=== PATIENT | male | born 1955 | race Caucasian/White ===

== ENCOUNTER → 2017-03-25 | Outpatient (CLI) | payer BC ==
--- NOTE | 2017-03-25 08:49 | RAD ---
Indication left groin pain. Targeted ultrasound to the left groin was performed. Bowel is seen in the inguinal canal compatible with a recurrent hernia. The left common femoral vein appeared normal.
== END | disposition home or self-care (01) ==
LOC: US 07:57
PROVIDERS: ATTEND Surgery
DX: K40.91 Unilateral inguinal hernia, without obstruction or gangrene, recurrent (principal)
CPT/HCPCS: 76881

== ENCOUNTER 2017-04-04 08:48 | Day surgery (SDC) | payer BC ==
[~2017-04-04] VITALS: Ht 175.3 cm; Wt 98.9 kg
[~2017-04-04 08:48] MED LIST: ASPI-630 PO; BUPIVACAINE-EPI 0.25%-1:200000 MPF 30 ML VIAL. ONE; CHOL100013 PO; GLUC100018 PO; HYDROmorphone 2 MG/ML VIAL IV PRN; IV RINGERS,LACTATED 1000ML 1,000 ML IV SCH; LIDOCAINE 1% PF 2 ML VIAL. ID PRN; LISI1TAB5 PO; ONDANSETRON PF 4 MG/2 ML VIAL. IV PRN; PROCHLORPERAZINE 10 MG/2 ML VIAL. IV PRN; SIMV40TA3 PO; fentaNYL PF VIAL 100 MCG/2 ML VIAL IV PRN
[2017-04-04] MEDS ORDERED: ONDANSETRON PF 4 MG/2 ML VIAL. ONE (10:17)
[2017-04-04] MEDS ORDERED: DEXAMETHASONE SOD PHOS 20 MG/5 ML VIAL. ONE (10:17)
[2017-04-04] MEDS ORDERED: LIDOCAINE 2% PF Vial for OR 5 ML VIAL. ONE (10:17)
[2017-04-04] MEDS ORDERED: FAMOTIDINE 20 MG/2 ML VIAL ONE (10:17)
[2017-04-04] MEDS ORDERED: PROPOFOL 20 ML IV ONE (10:17)
[2017-04-04] MEDS ORDERED: fentaNYL PF VIAL 100 MCG/2 ML VIAL ONE ×3 (10:19→12:30)
[2017-04-04] MEDS ORDERED: ROCURONIUM 100 MG/10 ML VIAL. ONE (10:19)
[2017-04-04] MEDS ORDERED: MIDAZOLAM HCL/PF 2 MG/2 ML VIAL. ONE (10:19)
[2017-04-04] MEDS ORDERED: NEOSTIGMINE METHYLSULFATE 5 MG/5 ML SYRINGE. ONE (11:38)
[2017-04-04] MEDS ORDERED: GLYCOPYRROLATE 1 MG/5 ML VIAL. ONE (11:38)
[2017-04-04] MEDS ORDERED: SEVOFLURANE 61 TO 120 MINUTES. IH ONE (11:53)
--- NOTE | 2017-04-04 12:02 | PDOC4 ---
Operative Note Operative Note Date: 04/04/2017 Reoperative diagnosis: Recurrent left inguinal hernia Postoperative diagnosis: Same Procedure: Robotic-assisted laparoscopic left inguinal hernia repair with mesh Surgeon: Noah Specimen: None Dictation: Patient is a 61-year-old male who had a left inguinal hernia repaired 2 years ago he returns with recurrence of a left inguinal hernia. Procedure of robotic-assisted laparoscopic left inguinal hernia repair with mesh was explained to the patient in detail all risks benefits were also discussed including bleeding infection injury to intra-abdominal contents possibly necessitating further or open operations. Agents seemed understanding gave both verbal and written consent to have the procedure performed. Was taken to the operating room placed in the supine position general anesthesia was initiated once patient was asleep and intubated he was repositioned in low lithotomy his abdomen and groin were prepped and draped in usual sterile fashion using ChloraPrep. An area at the umbilicus was injected with quarter percent Marcaine with epinephrine and incision was made lead blade scalpel and a varies needle was placed within the abdomen creating a pneumoperitoneum. Complete a 8-1/2 mm da Bill port was placed and a camera was placed within the abdomen the abdomen was inspected no other at maladies were noted other than the left inguinal hernia. At this time 2 8-1/2 mm ports were placed under direct visualization one in the left mid abdomen one in the right mid abdomen. The da Bill robot was then brought in and docked between the patient's legs to the ports. Surgeon went to the robotic console using a grasper and Endo Amari scissors the adhesions in the left groin were taken down with blunt and sharp dissection using the hernia defect. Contents of the hernia were reduced. Using a 8 x 10 cm ventral light mesh to cover the hernia defect this was sewn into place with 2-0 Vicryl single interrupted sutures. The peritoneum was closed over the mesh with a running 20V lock suture. The da Bill robot was undocked all ports removed the pneumoperitoneum was reduced all port sites were closed with 4 subcuticular Monocryl Mastisol Steri-Strips and island dressings were applied. It was check showed 2 testicles well within the scrotum. Patient was waken expanded in the operating room taken to recovery in stable condition all sponge instrument and needle counts listed as correct estimated blood loss 5 mL KATTY MERRILL MD Apr 04, 2017 12:02
[2017-04-04] MEDS ORDERED: PROCHLORPERAZINE 10 MG/2 ML VIAL. ONE (12:03)
--- NOTE | 2017-04-04 12:03 | DISCH ---
DISCHARGE INSTRUCTIONS Condition on Discharge Condition on Discharge: Stable Activity After Discharge Activity Instructions for Disc: Avoid exertion Other activity instructions: No lifting >20lbs for 2 weeks Lifting Instructions after Dis: No heavy lifting Diet after Discharge Diet after Discharge: Regular Wound Incision Care Other wound/incision instructi: May shower in 24 hours Contacting the after DC Call your doctor for: If your condition worsens Follow-Up Follow up with: Dr Merrill in 2 weeks KATTY MERRILL MD Apr 04, 2017 12:03
[2017-04-04] MEDS: fentaNYL PF VIAL 100 MCG/2 ML VIAL IV PRN ×3 (12:16→12:50)
[2017-04-04] MEDS ORDERED: MORPHINE SULFATE 2 MG/ML DISP.SYRIN. ONE (12:20)
[2017-04-04] MEDS: MORPHINE SULFATE 2 MG/ML DISP.SYRIN. IV PRN ×2 (12:29→12:40)
[2017-04-04] MEDS ORDERED: OXYC-323 PO (12:37)
[2017-04-04] MEDS ORDERED: oxyCODONE/APAP 5/325 1 TAB TABLET PO ONE (13:00)
[2017-04-04 13:20] VITALS: BP 99/58
== END 2017-04-04 13:36 | disposition home or self-care (01) ==
LOC: SURG 08:48
PROVIDERS: ATTEND Surgery
DX: K40.91 Unilateral inguinal hernia, without obstruction or gangrene, recurrent (principal); E78.00 Pure hypercholesterolemia, unspecified; I10 Essential (primary) hypertension; M19.91 Primary osteoarthritis, unspecified site; Z72.89 Other problems related to lifestyle; Z85.46 Personal history of malignant neoplasm of prostate; Z87.39 Personal history of other diseases of the musculoskeletal system and connective tissue
CPT/HCPCS: 49651; C1781; J0690; J0780; J1100; J2250; J2270; J2405; J2704; J2710; J3010; J3490; S0028; J2001